=== PATIENT | female | born 1965 | race Caucasian/White ===

== ENCOUNTER 2016-08-17 04:25 | Emergency (ER) | payer BC ==
[~2016-08-17] VITALS: Ht 165.1 cm; Wt 83.0 kg
[~2016-08-17 04:25] MED LIST: IBUP-1450 PO; LEVO75TA5 PO
[2016-08-17 04:28] VITALS: TEMP 36.4; Ht 165.1 cm; Wt 83.0 kg
[2016-08-17] MEDS ORDERED: PRED50TA PO (04:44)
[2016-08-17] MEDS ORDERED: AMOX875T PO (04:44)
[2016-08-17] MEDS ORDERED: DEXAMETHASONE SOD INJ 10 MG/ML VIAL PO ONE (04:45)
[2016-08-17] MEDS ORDERED: AMOXICIL/CLAVU 875MG HOME PACK PO ONE (04:45)
--- NOTE | 2016-08-17 04:49 | EMERGENCY ROOM VISIT NOTE ---
History First contact with patient: 04:28 Chief Complaint: THROAT PAIN/INJURY Stated Complaint: THROAT SWELLING History of Present Illness The patient is a 51 year old female who presents to the Emergency Room with complaints of swelling of the back of her throat past few hours that woke her up out of sleep. Patient is currently receiving radiation for maintenance treatment who is currently breast cancer free. Her last dose was yesterday and has 18 more treatments. No recent chemotherapy She follows Dr. Roa. Patient denies new foods soaps or detergents. No new medications. Patient denies chest pain, facial swelling, tongue swelling, dysphagia, neck stiffness, headache, fever, chills, cough, sinus pain or congestion, abdominal pain. + history of similar symptoms in the past. She does not take any rosalinda inhibitors. Review of Systems See HPI for pertinent positives & negatives. A total of 10 systems reviewed and were otherwise negative. Past Medical/Surgical History Medical Problems: (1) Anemia (2) Dilation and curettage (3) POLYP OF CORPUS UTERI Family History Patient reports no known family medical history. Social History Smoking Status: Current Every Day Smoker Drug Use: none Marital Status: Occupation Status: employed Current/Historical Medications Scheduled Amoxicillin & Pot Clavulanate (Augmentin 875-125 mg), 1 TAB PO BID Levothyroxine Sodium (Levothyroxine Sodium), 1 TAB PO DAILY Prednisone (Prednisone), 50 MG PO DAILY Scheduled PRN Ibuprofen (Motrin), 600 MG PO Q6H PRN for Pain Allergies Coded Allergies: Acetaminophen (Verified Allergy, Unknown, shortness of breath,rash, ) Sulfamethoxazole w/Trimethoprim (Verified Adverse Reaction, Severe, Throat Swelling, Rash , 07/01/16) Physical Exam Vital Signs Date Time Temp Pulse Resp B/P Pulse Ox O2 Delivery O2 Flow Rate FiO2 08/17/16 04:37 95 Room Air 08/17/16 04:28 95 Room Air 08/17/16 04:28 36.4 75 20 146/93 95 Room Air Physical Exam VITALS: Vitals are noted on the nurse's note and reviewed by myself. Vital signs stable. GENERAL: Pleasant female speaking in full sentences, in no acute distress, nondiaphoretic, well-developed well-nourished. SKIN: The skin was without rashes, erythema, edema, or bruising. There is no tenting of the skin. Capillary reflex less than 2 seconds. HEAD: Normocephalic atraumatic. EARS: External auditory canals clear, tympanic membranes pearly sanchez without erythema or effusion bilaterally. EYES: Pupils equal round and reactive to light and accommodation. Conjunctivae without injection, sclerae without icterus. Extraocular movements intact. NOSE: Patent, turbinates without inflammation or discharge. No sinus tenderness. MOUTH: Mucous membranes moist. Pharynx without erythema or exudate. Uvula midline and is edematous concerning for uvulitis. Airway patent. Tongue does not deviate. NECK: Supple without nuchal rigidity. No lymphadenopathy. No thyromegaly. Cervical spine is nontender. No JVD. HEART: Regular rate and rhythm without murmurs gallops or rubs. LUNGS: Clear to auscultation bilaterally without wheezes, rales or rhonchi. No dullness to percussion. No retractions or accessory muscle use. ABDOMEN: Positive bowel sounds x 4. Normal tympanic percussion. Soft, nontender, without masses or organomegaly. Bowman sign negative. No guarding or rebound tenderness. MUSCULOSKELETAL: No muscle atrophy, erythema, or edema noted. NEURO: Patient was alert and oriented to person place and time. Normal sensation to light and sharp touch. No focal neurological deficits. Medical Decision & Procedures ED Course Prior records/ancillary studies reviewed. Triage Nursing notes reviewed. Additional history obtained from family The patient's history was concerning for swelling of the back of the throat Differential diagnosis: Etiologies such as uvulitis, abscess, airway compromise, allergic reaction, anaphylaxis, urticaria, Warner-Aric syndrome, toxic epidermal necrolysis, erythema multiforme, cellulitis, as well as others were entertained. Physical examination: As above. ER treatment provided: Continuous cardiac monitoring Benadryl 50 mg IV Zantac 50 mg IV Decadron 10 mg IV Patient was reassessed and felt better. Stable vital signs Diagnostic interpretation by me: deferred It appears the patient has uvulitis. The above treatment did well to reverse some of the symptoms. Patient had this problem before and symptoms feel similar. She is advised follow-up with an compensation consulting manager for further workup. After prolonged monitoring and frequent reassessments the patient did very well and symptoms improved. The patient was counseled on the spectrum of this disease process. I gave my usual and customary discussion regarding this issue. Patient was started on antibiotics. She was informed to inform her oncologist that she is currently on antibiotics before receiving radiation today. Patient was afebrile and nontoxic. No signs of meningitis. No signs of abscess. No signs of airway compromise. No Kal's angina. She was advised to return to the ER immediately for chest pain, difficulty breathing, difficulty swallowing, worsening signs or symptoms or as needed. By the evaluation outlined above emergent etiologies such as recurring abscess, anaphylaxis, anaphylatic shock, airway compromise, Warner-Aric syndrome, toxic epidermal necrolysis, erythema multiforme, infectious etiologies, as well as others were deemed relatively unlikely. The pt informed about the findings as listed above. All questions were answered and pleased with the treatment. Return instructions were outlined and the patient was discharged in stable condition. Outpatient prescription management: Augmentin prednisone Referral: The patient was referred back to primary care physician for follow-up in 2-3 days for a recheck of the current condition. case reviewed with my Attending Medical Decision As above Impression Primary Impression: Uvulitis Departure Information Dispostion Home / Self-Care Condition GOOD Prescriptions Amoxicillin & Pot Clavulanate (Augmentin 875-125 mg) 1 Tab Tab 1 TAB PO BID, #18 TAB Prov: Myrna Corbett .MARION 08/17/16 Prednisone (Prednisone) 50 Mg Tab 50 MG PO DAILY for 4 Days, #4 TAB Prov: Myrna Corbett PA-C 08/17/16 Forms WORK / SCHOOL INSTRUCTIONS, HOME CARE DOCUMENTATION FORM, IMPORTANT VISIT INFORMATION Patient Instructions My [facility], ED Uvulitis Additional Instructions DO NOT drive, drink alcohol, operate machinery, or perform dangerous activities today. You were given medications in the ER that can affect your ability to safely function or operate a vehicle. Inform your oncologist that you are currently on antibiotics before you go to your radiation treatment. Amoxicillin Clavulanate (Augmentin) 875mg: Take one pill twice daily for 10 days for your infection. All antibiotics can cause diarrhea. If this occurs and you feel worse or it does not resolve in 1-2 days follow up with your doctor or return to the Emergency Department as this could be signs of serious underlying problems. Any medication can cause an allergic reaction, stop the pills immediately and return to the ER for rash, hives, breathing difficulties, or swelling. Continue current medications. Return to the emergency department for worsening of your difficulty swallowing, facial swelling, fevers, neck stiffness, swelling of your face, lips, tongue, or throat, difficulty breathing, vomiting, or as needed. Follow-up with your primary care physician in 2 to 3 days for a recheck of your current condition. This has been a recurrent issue for you. You may want to see an compensation consulting manager to see if this might be allergy induced.
[2016-08-17 04:55] VITALS: BP 146/93; PULSE 75; O2SAT 95
== END 2016-08-17 04:55 | disposition home or self-care (01) ==
LOC: C.EDB 04:27 → C.EDA 04:55
DX: K12.2 Cellulitis and abscess of mouth (principal); Z79.899 Other long term (current) drug therapy; Z85.841 Personal history of malignant neoplasm of brain; F17.200 Nicotine dependence, unspecified, uncomplicated

== ENCOUNTER → 2016-10-12 | Outpatient (CLI) | payer BC ==
[2016-10-12 13:43] VITALS: BP 129/83; PULSE 84; TEMP 37; O2SAT 93
--- NOTE | 2016-10-12 16:38 | Radiation Oncology Follow-Up ---
Radiation Oncology Follow-Up Date of Visit Oct 12, 2016. Reason For Visit One-month follow-up and cancer survivorship care plan Radiation Completion Date 09/13/16 Diagnosis (1) Breast cancer Status: Acute Onset Date: 12/17/2015 Histology Subtype: ductal Stage: l (A) Permanent Comment: Self detected right breast mass Status post mammography 12/16/2015. Status post core needle biopsy 12/17/2015, 2 separate lesions invasive adenocarcinoma grade 3 Estrogen receptor negative, progesterone receptor weakly positive, HER-2/sybil positive Clinical stage TI N0 M0 Status post neoadjuvant chemotherapy with Taxotere, Perjeta and Herceptin for 6 cycles Status post lumpectomy and sentinel lymph node biopsy 06/16/2016 Stage ypT1c ypN0 M0 She will continue Herceptin for 1 year Status post completion of radiation therapy 09/13/2016. Received 6640 cGy Last Edited By: Joceline Parra on September 10, 2016 08:22 History of Present Illness Ms. Green is a 51-year-old female with a family history of breast cancer. The patient self detected a right breast mass and she underwent a bilateral digital diagnostic mammogram on 12/16/2015. A BB skin marker was placed over the palpable lesion which is located at the 7:00 middle one third of the right breast. This study identified a new lobulated 1.6 x 1.2 x 1.2 cm mass with associated linear calcifications. Further characteristics with ultrasound was performed. Real-time high resolution ultrasound revealed a hypoechoic solid mass with microlobulated an indistinct margins measuring 0.9 x 1.0 x 1.3 cm. Adjacent and superficial to the dominant mass 7 mm away was a second solid satellite mass measuring 0.8 x 0.4 x 0.55 cm. Additional sonographic evaluation was performed of the right axilla and no suspicious lymphadenopathy was identified. This was felt to be of moderate suspicion for malignancy with a biopsy recommended. On 01/17/2016 patient underwent an ultrasound guided core biopsy of the 7:00 right breast mass. This confirmed an invasive adenocarcinoma [place] grade 9 of 9 with no lymphovascular or perineural invasion identified. Estrogen receptors were negative, progesterone receptors were weakly positive at 1% and HER-2/sybil was equivocal. Ki-67 revealed 70% of cells positive. Tumor cells however were positive for HER-2/sybil amplification by FISH analysis in contrast to the equivocal results obtained by IHC. 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 Case: [id number]. Patient was seen by Dr. Ennis and subsequently by Dr. Jluis Zavala to discuss treatment options. A breast MRI was performed. The left breast there was no definitive suspicious mass or [id number] enhancement seen. There was a possible intramammary lymph node at the 10:00 middle depth with suggested six- month follow-up with MRI. In the right a 1.8 x 1.3 x 1.3 cm middle depth mass at the 6 to 7 o'clock position was appreciated corresponding to the biopsy- proven malignancy. An adjacent suspicious enhancing satellite nodule just inferior to the index lesion at the 6 to 7 o'clock position was also noted measuring 0.8 x 0.6 x 0.8 mm. The decision was ultimately made to proceed with neoadjuvant chemotherapy the plan was to proceed with 6 cycles of Taxotere, Perjetta and Herceptin. The patient agreed and started and completed the initial course of systemic chemotherapy. She underwent a restaging bilateral breast MRI on 05/27/2016. This showed near complete resolution of the 2 adjacent enhancing masses previously seen in the lower outer quadrant. The left breast remained negative. Patient therefore return to Dr. Ennis who proceeded to perform a right breast lumpectomy and sentinel node biopsy. Dr. Ennis discussed tissue transfer reconstruction for oncoplastic closure to improve her cosmetic result following surgery. The patient agreed and on 06/16/2016 underwent this surgical procedure. A total of 5 sentinel nodes were identified and all were negative with no evidence of metastatic carcinoma. The lumpectomy specimen revealed no residual carcinoma. A small focus of atypical ductal hyperplasia measuring 0.2 cm was appreciated. Accession #: [id number]. Patient therefore had a complete pathologic response. She is to continue the Herceptin for a total of one year. We were asked to see her in referral to discuss with her the role of adjuvant radiation. She completed her course of chemotherapy and then return to our office. She completed radiation therapy 09/03/2016. She received 6640 cGy. Interim History She's been doing well over the past 6 months. She has noted no changes to her breast. The skin irritation that occurred towards the end of treatment resolved without difficulty. She denies tenderness. She has noted no masses and no change of the axilla. She's had no swelling of her arm. She has mammography scheduled for November. She does continue to have some complaints of tingling of the hands and feet. She has toenail discoloration. Her hair is steadily coming in. She occasionally feels slightly dizzy. She has reviewed these symptoms with medical oncology. Allergies Coded Allergies: Acetaminophen (Verified Allergy, Unknown, shortness of breath,rash, ) Sulfamethoxazole w/Trimethoprim (Verified Adverse Reaction, Severe, Throat Swelling, Rash , 07/01/16) Home Medications Scheduled Levothyroxine Sodium (Levothyroxine Sodium), 1 TAB PO DAILY Scheduled PRN Ibuprofen (Motrin), 600 MG PO Q6H PRN for Pain Review of Systems Gastrointestinal: Symptoms: Diarrhea GI Comments: Very very loose stools daily which has been present since chemo ; Oral: Symptoms: No Problems Respiratory: Symptoms: WNL Urinary: Symptoms: WNL Skin: Symptoms: No Problems Breast: Right Upper Arm Measurement: 32.3 Right Mid Arm Measurement: 28.0 Right Wrist Measurement: 16.5 Left Upper Arm Measurement: 32.0 Left Mid Arm Measurement: 27.5 Left Wrist Measurement: 16.8 Arm Dominence: Right Additional Notes: She completed a distress management report and answered "no" to all questions. Physical Exam Vital Signs Date Time Temp Pulse Resp B/P (MAP) Pulse Ox O2 Delivery O2 Flow Rate FiO2 10/12/16 13:43 37.0 84 16 129/83 93 General Appearance: no apparent distress Eyes: normal inspection, EOMI ENT: normal ENT inspection, hearing grossly normal Neck: no adenopathy, thyroid normal Respiratory/Chest: lungs clear, no respiratory distress, no accessory muscle use Breast: Breast examination reveals well-healed incisions of the right breast. There are minimal masses or tenderness and no axillary adenopathy. There is mild hyperpigmentation. There is no erythema or edema. There is no telangiectasia. Using the [employer] score cosmesis she has a good outcome. Left breast showed no masses or tenderness no axillary adenopathy. Cardiovascular: regular rate, rhythm, no gallop, no murmur Abdomen: non tender, soft Extremities: no pedal edema Neurologic/Psychiatric: no motor/sensory deficits, alert, normal mood/affect Skin: warm/dry Lymphatic: no adenopathy Laboratory Studies Test 07/14/16 17:30 08/25/16 18:28 White Blood Count 6.17 K/uL (4.8-10.8) 8.31 K/uL (4.8-10.8) Red Blood Count 3.90 M/uL (4.2-5.4) 4.33 M/uL (4.2-5.4) Hemoglobin 13.1 g/dL (12.0-16.0) 14.1 g/dL (12.0-16.0) Hematocrit 38.3 % (37-47) 41.2 % (37-47) Mean Corpuscular Volume 98.2 fL (80-100) 95.2 fL (80-100) Mean Corpuscular Hemoglobin 33.6 pg (25-34) 32.6 pg (25-34) Mean Corpuscular Hemoglobin Concent 34.2 g/dl (32-36) 34.2 g/dl (32-36) Platelet Count 164 K/uL (130-400) 169 K/uL (130-400) Mean Platelet Volume 9.3 fL (7.4-10.4) 9.3 fL (7.4-10.4) Neutrophils (%) (Auto) 55.0 % 65.1 % Lymphocytes (%) (Auto) 33.5 % 23.6 % Monocytes (%) (Auto) 7.1 % 7.9 % Eosinophils (%) (Auto) 3.6 % 2.6 % Basophils (%) (Auto) 0.3 % 0.4 % Neutrophils # (Auto) 3.39 K/uL (1.4-6.5) 5.41 K/uL (1.4-6.5) Lymphocytes # (Auto) 2.07 K/uL (1.2-3.4) 1.96 K/uL (1.2-3.4) Monocytes # (Auto) 0.44 K/uL (0.11-0.59) 0.66 K/uL (0.11-0.59) Eosinophils # (Auto) 0.22 K/uL (0-0.5) 0.22 K/uL (0-0.5) Basophils # (Auto) 0.02 K/uL (0-0.2) 0.03 K/uL (0-0.2) RDW Standard Deviation 43.9 fL (36.4-46.3) 42.4 fL (36.4-46.3) RDW Coefficient of Variation 12.3 % (11.5-14.5) 12.2 % (11.5-14.5) Immature Granulocyte % (Auto) 0.5 % 0.4 % Immature Granulocyte # (Auto) 0.03 K/uL (0.00-0.02) 0.03 K/uL (0.00-0.02) Assessment & Plan Plan: She is scheduled for follow-up mammography in November. We discussed that these will be digital diagnostic mammograms. These have been scheduled through the breast surgeons office. She'll continue follow-up with Dr. Zavala and her primary care physician. She continues on the Herceptin for 1 year. Today we completed a cancer survivorship care plan. A copy of the document was given to the patient. We asked her to return to our office in 6 months. She may call if she has any questions or concerns in the interim. Total Time In Follow-Up I spent 20 minutes speaking to the patient performing examination. I spent 20 minutes reviewing information, preparing the survivorship document, and completing this note. Copy To Brandy Ennis MD; Alexandru Grande D.O.; Jluis Zavala M.D. Problem Qualifiers (1) Breast cancer: Breast location: lower outer quadrant of breast Estrogen receptor status: negative Patient sex: female Laterality: right Qualified Codes: C50.511 - Malignant neoplasm of lower-outer quadrant of right female breast; Z17.1 - Estrogen receptor negative status [ER-]
== END | disposition home or self-care (01) ==
LOC: C.ONC 13:39
PROVIDERS: ATTEND Physician Assistant Medical
DX: Z08 Encounter for follow-up examination after completed treatment for malignant neoplasm (principal); Z92.3 Personal history of irradiation; Z85.3 Personal history of malignant neoplasm of breast

== ENCOUNTER → 2016-12-13 | Outpatient (CLI) | payer BC ==
--- NOTE | 2016-12-13 14:33 | MAMMOGRAPHY REPORT ---
BILATERAL DIGITAL DIAGNOSTIC MAMMOGRAM TOMOSYNTHESIS WITH CAD: 12/13/2016 CLINICAL HISTORY: 51-year-old woman with a personal history of right breast cancer presents for bilat eral screening mammography of both breasts and also close evaluation of the right breast as she is ap proximately 6 months status post treatment with lumpectomy and radiation therapy. TECHNIQUE: Bilateral breast tomosynthesis in addition to standard 2D mammography was performed. Spot magnification right CC and ML views were also obtained. Current study was also evaluated with a Z Plane Aided Detection (CAD) system. COMPARISON: Comparison is made to exams dated: 03/24/2016 ultrasound, 03/24/2016 mammogram, 6 mammogram, 12/16/2015 mammogram, 08/09/2013 mammogram, and 08/06/2013 mammogram - [facility]. BREAST COMPOSITION: There are scattered areas of fibroglandular density in both breasts. FINDINGS: A linear scar marker overlies the inferior right breast, denoting the lumpectomy site. Th ere is expected underlying architectural distortion. The previously observed wing- and a ribbon-shap ed biopsy markers have been excised. No evidence of a new suspicious mass, developing asymmetry, foc al area of architectural distortion or suspicious calcifications bilaterally. IMPRESSION: ACR-BI-RADS CATEGORY 3: PROBABLY BENIGN 1. Expected posttreatment changes in the right breast, without mammographic evidence of malignancy. 2. Stable mammographic appearance of the left breast, without evidence of malignancy. 3. Recommend close follow-up mammograms and possible ultrasound of the right breast in 6 months, to ensure longer stability after treatment. These results and recommendations were discussed with the patient at the time of the exam. Approximately 10% of breast cancers are not detected with mammography. A negative mammographic report should not delay biopsy if a clinically suggestive mass is present. Char Stanley M.D. ay/:12/13/2016 12:38:00 Material Analyst: Germaine ALONZO)(Lucita), [facility] letter sent: Follow Up Recommended 3 BI-RADS Code: ACR-BI-RADS Category 3: Probably Benign
== END | disposition home or self-care (01) ==
LOC: C.MAMM 10:14
PROVIDERS: ATTEND Surgery
DX: Z85.3 Personal history of malignant neoplasm of breast (principal); Z08 Encounter for follow-up examination after completed treatment for malignant neoplasm

== ENCOUNTER → 2017-01-27 | Outpatient (CLI) | payer BC ==
--- NOTE | 2017-01-27 19:09 | DIAGNOSTIC IMAGING REPORT ---
BRAIN WITHOUT CONTRAST HISTORY: Mental status change VERTIGO TECHNIQUE: Multiplanar multisequence MRI of the brain was performed without the use of contrast. COMPARISON STUDY: None. FINDINGS: There are no areas of restricted diffusion to suggest acute infarction. The midline structures are intact. The paranasal sinuses are clear. The mastoid air cells are clear. The ventricles and sulci are within normal limits for age. There is no mass, hematoma, midline shift. The major vascular flow-voids at the skull base are well maintained. Several small foci of increased signal within the periventricular and deep white matter regions consistent with mild chronic small vessel change. IMPRESSION: Mild chronic small vessel change. A demyelinating disorder is felt to be less likely although cannot be completely excluded. Otherwise normal study The above report was generated using voice recognition software. It may contain grammatical, syntax or spelling errors. Electronically signed by: Hernando Lucas M.D. 01/27/2017 7:08 PM Dictated Date/Time: 01/27/2017 7:05 PM
== END | disposition home or self-care (01) ==
LOC: C.MRI 17:51
PROVIDERS: ATTEND Internal Medicine
DX: R42 Dizziness and giddiness (principal); C50.411 Malignant neoplasm of upper-outer quadrant of right female breast

== ENCOUNTER → 2017-04-13 | Outpatient (CLI) | payer BC ==
[~2017-04-13] MED LIST changes: +PRLSR20 PO
[2017-04-13 14:21] VITALS: BP 146/92; PULSE 85; TEMP 36.9; O2SAT 96
--- NOTE | 2017-04-13 16:41 | Radiation Oncology Follow-Up ---
Radiation Oncology Follow-Up Date of Visit Apr 13, 2017. Reason For Visit 6 month follow-up Radiation Completion Date 09/13/16 Diagnosis (1) Breast cancer Status: Resolved Onset Date: 12/17/2015 Stage: l (A) Permanent Comment: Self detected right breast mass Status post mammography 12/16/2015. Status post core needle biopsy 12/17/2015, 2 separate lesions invasive adenocarcinoma grade 3 Estrogen receptor negative, progesterone receptor weakly positive, HER-2/sybil positive Clinical stage TI N0 M0 Status post neoadjuvant chemotherapy with Taxotere, Perjeta and Herceptin for 6 cycles Status post lumpectomy and sentinel lymph node biopsy 06/16/2016 Stage ypT1c ypN0 M0 She will continue Herceptin for 1 year Status post completion of radiation therapy 09/13/2016. Received 6640 cGy Last Edited By: Joceline Parra on September 10, 2016 08:22 History of Present Illness Ms. Welch is a 51-year-old female with a family history of breast cancer. The patient self detected a right breast mass and she underwent a bilateral digital diagnostic mammogram on 12/16/2015. A BB skin marker was placed over the palpable lesion which is located at the 7:00 middle one third of the right breast. This study identified a new lobulated 1.6 x 1.2 x 1.2 cm mass with associated linear calcifications. Further characteristics with ultrasound was performed. Real-time high resolution ultrasound revealed a hypoechoic solid mass with microlobulated an indistinct margins measuring 0.9 x 1.0 x 1.3 cm. Adjacent and superficial to the dominant mass 7 mm away was a second solid satellite mass measuring 0.8 x 0.4 x 0.55 cm. Additional sonographic evaluation was performed of the right axilla and no suspicious lymphadenopathy was identified. This was felt to be of moderate suspicion for malignancy with a biopsy recommended. On 01/17/2016 patient underwent an ultrasound guided core biopsy of the 7:00 right breast mass. This confirmed an invasive adenocarcinoma [place] grade 9 of 9 with no lymphovascular or perineural invasion identified. Estrogen receptors were negative, progesterone receptors were weakly positive at 1% and HER-2/sybil was equivocal. Ki-67 revealed 70% of cells positive. Tumor cells however were positive for HER-2/sybil amplification by FISH analysis in contrast to the equivocal results obtained by IHC. 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 Case: [id number]. Patient was seen by Dr. Ennis and subsequently by Dr. Jluis Zavala to discuss treatment options. A breast MRI was performed. The left breast there was no definitive suspicious mass or wyh-ssaw-wuyl enhancement seen. There was a possible intramammary lymph node at the 10:00 middle depth with suggested six- month follow-up with MRI. In the right a 1.8 x 1.3 x 1.3 cm middle depth mass at the 6 to 7 o'clock position was appreciated corresponding to the biopsy- proven malignancy. An adjacent suspicious enhancing satellite nodule just inferior to the index lesion at the 6 to 7 o'clock position was also noted measuring 0.8 x 0.6 x 0.8 mm. The decision was ultimately made to proceed with neoadjuvant chemotherapy the plan was to proceed with 6 cycles of Taxotere, Perjetta and Herceptin. The patient agreed and started and completed the initial course of systemic chemotherapy. She underwent a restaging bilateral breast MRI on 05/27/2016. This showed near complete resolution of the 2 adjacent enhancing masses previously seen in the lower outer quadrant. The left breast remained negative. Patient therefore return to Dr. Ennis who proceeded to perform a right breast lumpectomy and sentinel node biopsy. Dr. Ennis discussed tissue transfer reconstruction for oncoplastic closure to improve her cosmetic result following surgery. The patient agreed and on 06/16/2016 underwent this surgical procedure. A total of 5 sentinel nodes were identified and all were negative with no evidence of metastatic carcinoma. The lumpectomy specimen revealed no residual carcinoma. A small focus of atypical ductal hyperplasia measuring 0.2 cm was appreciated. Accession #: [id number]. Patient therefore had a complete pathologic response. She is to continue the Herceptin for a total of one year. We were asked to see her in referral to discuss with her the role of adjuvant radiation. She completed her course of chemotherapy and then return to our office. She completed radiation therapy 09/03/2016. She received 6640 cGy. Interim History She has been doing well over the past 6 months. She's noted no changes to her breast. She has noticed no masses or tenderness no change of the axilla. She' s had no swelling of her arm. She is up-to-date on mammography. 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 These have steadily resolved. She also had vertigo. She saw her primary care physician Dr. Reddy who had ordered a MRI of the brain. There is no evidence of metastatic disease. Allergies Coded Allergies: Sulfamethoxazole w/Trimethoprim (Verified Adverse Reaction, Severe, Throat Swelling, Rash , 07/01/16) Home Medications Scheduled Levothyroxine Sodium (Levothyroxine Sodium), 1 TAB PO DAILY Omeprazole (Prilosec), 20 MG PO DAILY Scheduled PRN Ibuprofen (Motrin), 600 MG PO Q6H PRN for Pain Review of Systems Gastrointestinal: Symptoms: WNL GI Comments: N/V Better on Daily Prilosec (due to stress) Oral: Symptoms: No Problems Respiratory: Symptoms: WNL Urinary: Symptoms: WNL Skin: Symptoms: No Problems Breast: Right Upper Arm Measurement: 30.9 Right Mid Arm Measurement: 26.1 Right Wrist Measurement: 16.8 Left Upper Arm Measurement: 31.5 Left Mid Arm Measurement: 26.8 Left Wrist Measurement: 16.8 Arm Dominence: Right Physical Exam Vital Signs Date Time Temp Pulse Resp B/P (MAP) Pulse Ox O2 Delivery O2 Flow Rate FiO2 04/13/17 14:21 36.9 85 16 146/92 96 Fatigue: None General Appearance: no apparent distress Eyes: normal inspection, EOMI ENT: normal ENT inspection, hearing grossly normal Neck: no adenopathy, thyroid normal Respiratory/Chest: lungs clear, no respiratory distress, no accessory muscle use Breast: Breast examination reveals well-healed incisions of the right breast. There are no masses or tenderness no axillary adenopathy. There are no skin retractions or nipple changes. Using the [place] score cosmesis she has an excellent outcome. Left breast showed no masses or tenderness and no axillary adenopathy. Cardiovascular: regular rate, rhythm, no gallop, no murmur Abdomen: non tender, soft Extremities: no pedal edema Neurologic/Psychiatric: no motor/sensory deficits, alert, normal mood/affect Skin: warm/dry Lymphatic: no adenopathy Pain Management Patient Reports Pain: Yes Pain Location: Back Initial Pain Intensity: 1 Pain Management Plan Her pain is minimal and does not require any pain management. Laboratory Laboratory Results: not applicable Pathology Pathology Results: not applicable Imaging Imaging Studies: were reviewed, and pertinent findings noted below Imaging Comments Patient: CARLOS WELCH [facility] Rec: [id number] Address1: [address] Address2: Acct ID: [id number] Date: 1965 Sex: F Ref Phy: Alexandru Grande D.O. Att Phy: Brandy Ennis MD Nelida Phy: Alexandru Grande D.O. Inter Phy: Char Stanley MD [facility] Zip: [place] [address] SC: C.MAMM Report #: [id number] Visitor Services Associate: JUMANA Diagnosis: S/P SURGERY RIGHT BREAST CA/IMAGES HERE Service Date: 12/13/16 MNE: [id number] Ordering Dr: Brandy Ennis MD CC: Brandy Ennis MD CONF: DICTATED BY: Char Stanley MD MAMMOGRAPHY REPORT BILATERAL DIGITAL DIAGNOSTIC MAMMOGRAM TOMOSYNTHESIS WITH CAD: 12/13/2016 CLINICAL HISTORY: 51-year-old woman with a personal history of right breast cancer presents for bilateral screening mammography of both breasts and also close evaluation of the right breast as she is approximately 6 months status post treatment with lumpectomy and radiation therapy. TECHNIQUE: Bilateral breast tomosynthesis in addition to standard 2D mammography was performed. Spot magnification right CC and ML views were also obtained. Current study was also evaluated with a Computer Aided Detection (CAD ) system. COMPARISON: Comparison is made to exams dated: 03/24/2016 ultrasound, 2015 mammogram, 12/17/2015 mammogram, 12/16/2015 mammogram, 08/09/2013 mammogram, and 08/06/2013 mammogram - [facility]. BREAST COMPOSITION: There are scattered areas of fibroglandular density in both breasts. FINDINGS: A linear scar marker overlies the inferior right breast, denoting the lumpectomy site. There is expected underlying architectural distortion. The previously observed wing- and a ribbon-shaped biopsy markers have been excised. No evidence of a new suspicious mass, developing asymmetry, focal area of architectural distortion or suspicious calcifications bilaterally. IMPRESSION: ACR-BI-RADS CATEGORY 3: PROBABLY BENIGN 1. Expected posttreatment changes in the right breast, without mammographic evidence of malignancy. 2. Stable mammographic appearance of the left breast, without evidence of malignancy. 3. Recommend close follow-up mammograms and possible ultrasound of the right breast in 6 months, to ensure longer stability after treatment. These results and recommendations were discussed with the patient at the time of the exam. Approximately 10% of breast cancers are not detected with mammography. A negative mammographic report should not delay biopsy if a clinically suggestive mass is present. Char Stanley M.D. ay/:12/13/2016 12:38:00 Meat Manager: Germaine ALONZO)(Lucita), [facility] letter sent: Follow Up Recommended 3 BI-RADS Code: ACR-BI-RADS Category 3: Probably Benign Dictated by: Char Stanley MD Signed by: Char Stanley MD Assessment & Plan Plan: Continue with scheduled mammography. She has a mammogram scheduled for June. Continue follow-up with her primary care provider. She is now followed by Dr. Brooks in medical oncology. She does have a follow-up appointment with him. We asked her to return to our office in 1 year. She may call if she has any questions or concerns in the interim. Total Time In Follow-Up I spent 20 minutes speaking to the patient and performing examination. I spent 15 minutes reviewing information in completing this note. Copy To Froilan Brooks M.D.; Alexandru Grande D.O. Problem Qualifiers (1) Breast cancer: Breast location: upper outer quadrant of breast Estrogen receptor status: negative Patient sex: female Laterality: right Qualified Codes: C50.411 - Malignant neoplasm of upper-outer quadrant of right female breast; Z17.1 - Estrogen receptor negative status [ER-]
== END | disposition home or self-care (01) ==
LOC: C.ONC 14:14
PROVIDERS: ATTEND Physician Assistant Medical
DX: Z08 Encounter for follow-up examination after completed treatment for malignant neoplasm (principal); Z92.3 Personal history of irradiation; Z85.3 Personal history of malignant neoplasm of breast

== ENCOUNTER → 2017-05-27 | Outpatient (CLI) | payer OTHER ==
--- NOTE | 2017-05-27 13:26 | MAMMOGRAPHY REPORT ---
UNILATERAL RIGHT DIGITAL DIAGNOSTIC MAMMOGRAM TOMOSYNTHESIS WITH CAD AND TARGETED RIGHT ULTRASOUND: CLINICAL HISTORY: History of right breast cancer status post treatment. The patient reports 3 weeks of right breast tenderness. She denies any palpable lumps, skin erythema, nipple discharge, or other complaints. TECHNIQUE: Breast tomosynthesis in addition to standard 2D mammography was performed. Current study was also evaluated with a Computer Aided Detection (CAD) system. Right CC and MLO 2-D and tomosynthe sis images and spot magnification right cc and ML views were obtained. COMPARISON: Comparison is made to exams dated: 12/13/2016 mammogram, 03/24/2016 ultrasound, 6 mammogram, 01/12/2016 localization, 12/17/2015 mammogram, and 12/16/2015 mammogram - [facility]. BREAST COMPOSITION: There are scattered areas of fibroglandular density in the right breast. FINDINGS: There has been no significant interval change in the right breast compared to prior exams. There are stable post surgical changes in the right 6:00 breast from prior lumpectomy, including st able density and architectural distortion at the lumpectomy bed. Mild diffuse right breast skin thic kening is not significantly changed and is likely related to prior radiation therapy. The remainder of the right breast is stable compared to prior exams, without suspicious masses, calcifications, or areas of architectural distortion noted. Targeted ultrasound was performed of the areas of pain pointed out by the patient, in the right breas t at 2:00 approximately 5 cm from the nipple, right lower inner quadrant involving the 6:00 region, a nd right lower outer quadrant. No suspicious masses or other suspicious sonographic abnormalities ar e evident. There are expected post surgical changes in the right 6:00 breast at the surgical bed. IMPRESSION: ACR-BI-RADS CATEGORY 3: PROBABLY BENIGN, TARGETED ULTRASOUND ACR-BI-RADS CATEGORY 3: PRO BABLY BENIGN No suspicious mammographic or sonographic abnormality to explain right breast tenderness. Stable post treatment changes in the right breast, without mammographic evidence of malignancy in the right breas t. Recommend clinical follow-up for right breast tenderness. Also recommend bilateral diagnostic ma mmograms in 6 months, to reevaluate right breast post surgical changes and for routine mammography of the left breast. The patient has been verbally notified of the results. She reports she has a follow-up already sched ul for November. Approximately 10% of breast cancers are not detected with mammography. A negative mammographic report should not delay biopsy if a clinically suggestive mass is present. Radha Herrera M.D. ah/:05/27/2017 10:54:01 Aeronautical Products Sales Engineer: Savanna ALONZO)(Lucita), [facility] letter sent: Personal History 3 BI-RADS Code: ACR-BI-RADS Category 3: Probably Benign Ultrasound BI-RADS: ACR-BI-RADS Category 3: Pr obably Benign
== END | disposition home or self-care (01) ==
LOC: C.MAMM 08:44
PROVIDERS: ATTEND Internal Medicine
DX: R92.8 Other abnormal and inconclusive findings on diagnostic imaging of breast (principal)

== ENCOUNTER 2017-07-15 13:56 | Emergency (ER) | payer OTHER ==
[~2017-07-15] VITALS: Ht 165.1 cm; Wt 81.9 kg
[~2017-07-15 13:56] MED LIST changes: -PRLSR20 PO
[2017-07-15 13:59] VITALS: TEMP 36.7; Ht 165.1 cm; Wt 81.9 kg
[2017-07-15] MEDS ORDERED: SODIUM CHLORIDE 0.9% 1000ML 2,000 ML IV STA (14:15)
--- NOTE | 2017-07-15 14:20 | EMERGENCY ROOM VISIT NOTE ---
History Report prepared by Andrae: Dylan Meza Under the Supervision of: Dr. Valentino Ferrer M.D. First contact with patient: 14:10 Chief Complaint: POISONING Stated Complaint: RUBBER TUBING BACKER PUT IN DRINK, DRANK IT History of Present Illness The patient is a 52 year old female who presents to the Emergency Room with complaints of episodic alleged general poisoning since 0715 this morning. She states that she was not feeling 100% normal today, so she brought a mekoryuk flavored 16.9 ounce Gatorade to work with her and placed it in her 32 ounce thermos with ice cubes she obtained from work. 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 She states that she began drinking her Gatorade at 0715 and noticed that it tasted funny, and reports a burning sensation in her throat and stomach. She reports continuing to drink her Gatorade in hopes the burning sensation would go away. She states that she tasted Clorox when she finished the last of her drink at 1300 today. She notes that every time she burps, she tastes Clorox. She reports nausea. She notes the burning sensation is like indigestion, but worse. She is concerned that he has been poisoned by someone at work, though she is not sure who would contaminate her beverage. She states that the only Clorox products they use at work are a liquid brand Comet, which she is unsure if it is industrial strength. She states this is the third time something like this has occurred in the last two years. She states that she has found hand lotion in her drink in the past and just two months ago she found a bar of soap in her coffee. She states that this has been reported to the police. 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 She is expected to have a grievance hearing on Tuesday, July 18, 2017. She has a history of breast cancer, though she is in remission. She also has a history of hypothyroidism. She denies any history of anxiety or depression. She denies any abdominal pain, fevers, chills, cough, or congestion. Source of History: patient Onset: 0715 this morning Position: other (general) Quality: other (alleged poisoning) Timing: other (episodic) Associated Symptoms: + nausea, No fevers, No chills, No cough, No abdominal pain Note: She notes a burning sensation in her throat and stomach. She denies any congestion. Review of Systems See HPI for pertinent positives and negatives. A total of ten systems were reviewed and were otherwise negative. Past Medical & Surgical Medical Problems: (1) Anemia (2) Breast cancer (3) Dilation and curettage (4) POLYP OF CORPUS UTERI Family History Patient reports no known family medical history. Social History Smoking Status: Current Every Day Smoker Drug Use: none Marital Status: Occupation Status: employed Current/Historical Medications Scheduled Levothyroxine Sodium (Levothyroxine Sodium), 75 MCG PO DAILY Omeprazole (Prilosec), 20 MG PO DAILY Allergies Coded Allergies: Sulfamethoxazole w/Trimethoprim (Verified Allergy, Severe, Throat Swelling , Rash , 07/15/17) Physical Exam Vital Signs Date Time Temp Pulse Resp B/P (MAP) Pulse Ox O2 Delivery O2 Flow Rate FiO2 07/15/17 18:59 68 16 96 Room Air 07/15/17 17:30 62 16 143/83 94 Room Air 07/15/17 16:21 79 14 148/99 95 Room Air 07/15/17 16:17 73 07/15/17 14:47 79 18 132/89 94 Room Air 07/15/17 13:59 36.7 90 18 150/99 97 Room Air Physical Exam GENERAL: Awake, alert, anxious-appearing, in no distress HENT: Normocephalic, atraumatic. Oropharynx dry mucus membranes, no erythema. EYES: Normal conjunctiva. Sclera non-icteric. NECK: Supple. No nuchal rigidity. FROM. No JVD. No crepitus RESPIRATORY: Clear to auscultation. CARDIAC: Regular rate, normal rhythm. Extremities warm and well perfused. Pulses equal. ABDOMEN: Soft, non-distended. No tenderness to palpation. No rebound or guarding. No masses. RECTAL: Deferred. MUSCULOSKELETAL: Chest examination reveals no tenderness, no crepitus. The back is symmetrical on inspection without obvious abnormality. There is no CVA tenderness to palpation. No joint edema. LOWER EXTREMITIES: Calves are equal size bilaterally and non-tender. No edema. No discoloration. NEURO: Normal sensorium. No sensory or motor deficits noted. SKIN: No rash or jaundice noted. Medical Decision & Procedures ER Provider Diagnostic Interpretation: Radiology results as stated below per my review and radiologist interpretation: CHEST ONE VIEW PORTABLE CLINICAL HISTORY: , Pain. COMPARISON STUDY: Chest radiograph August 13, 2015. FINDINGS: Lung volumes are normal. No pneumothorax or pleural effusion is noted. There is no consolidation or evidence for pulmonary edema. Borderline cardiomegaly is noted. Mediastinal contours are unremarkable. IMPRESSION: No acute cardiopulmonary findings. Electronically signed by: Teja Nieves M.D. 07/15/2017 3:32 PM Dictated Date/Time: 07/15/2017 3:32 PM SOFT TISSUE NECK HISTORY: 52 years-old Female throat burning, ?drank industrial clorox acute throat burning status post toxic ingestion COMPARISON: Chest radiographs 08/13/2015 TECHNIQUE: 2 views of the soft tissues of the neck FINDINGS: No prevertebral soft tissue swelling or opaque foreign body. Epiglottis and aryepiglottic folds are within normal limits. The imaged cervical spine appears intact and unremarkable. The imaged lung apices appear clear. IMPRESSION: Unremarkable soft tissue neck radiographs. The above report was generated using voice recognition software. It may contain grammatical, syntax or spelling errors. Electronically signed by: Juventino Marroquin M.D. 07/15/2017 3:34 PM Dictated Date/Time: 07/15/2017 3:33 PM Laboratory Results 07/15/17 14:40 Red Blood Count 4.36, Mean Corpuscular Volume 91.5, Mean Corpuscular Hemoglobin 31.7, Mean Corpuscular Hemoglobin Concent 34.6, Mean Platelet Volume 9.1, Neutrophils (%) (Auto) 66.3, Lymphocytes (%) (Auto) 25.0, Monocytes (%) (Auto) 6.0, Eosinophils (%) (Auto) 2.2, Basophils (%) (Auto) 0.3, Neutrophils # (Auto) 3.89, Lymphocytes # (Auto) 1.47, Monocytes # (Auto) 0.35, Eosinophils # (Auto) 0.13, Basophils # (Auto) 0.02 07/15/17 14:40 Test 07/15/17 14:40 White Blood Count 5.87 K/uL (4.8-10.8) Red Blood Count 4.36 M/uL (4.2-5.4) Hemoglobin 13.8 g/dL (12.0-16.0) Hematocrit 39.9 % (37-47) Mean Corpuscular Volume 91.5 fL (80-100) Mean Corpuscular Hemoglobin 31.7 pg (25-34) Mean Corpuscular Hemoglobin Concent 34.6 g/dl (32-36) Platelet Count 173 K/uL (130-400) Mean Platelet Volume 9.1 fL (7.4-10.4) Neutrophils (%) (Auto) 66.3 % Lymphocytes (%) (Auto) 25.0 % Monocytes (%) (Auto) 6.0 % Eosinophils (%) (Auto) 2.2 % Basophils (%) (Auto) 0.3 % Neutrophils # (Auto) 3.89 K/uL (1.4-6.5) Lymphocytes # (Auto) 1.47 K/uL (1.2-3.4) Monocytes # (Auto) 0.35 K/uL (0.11-0.59) Eosinophils # (Auto) 0.13 K/uL (0-0.5) Basophils # (Auto) 0.02 K/uL (0-0.2) RDW Standard Deviation 44.6 fL (36.4-46.3) RDW Coefficient of Variation 13.3 % (11.5-14.5) Immature Granulocyte % (Auto) 0.2 % Immature Granulocyte # (Auto) 0.01 K/uL (0.00-0.02) Anion Gap 8.0 mmol/L (3-11) Est Creatinine Clear Calc Drug Dose 62.4 ml/min Estimated GFR () 66.6 Estimated GFR (Non- 57.5 BUN/Creatinine Ratio 12.3 (10-20) Calcium Level 9.4 mg/dl (8.5-10.1) Total Bilirubin 0.3 mg/dl (0.2-1) Direct Bilirubin < 0.1 mg/dl (0-0.2) Aspartate Amino Transf (AST/SGOT) 14 U/L (15-37) Alanine Aminotransferase (ALT/SGPT) 22 U/L (12-78) Alkaline Phosphatase 37 U/L (45-117) Total Protein 7.3 gm/dl (6.4-8.2) Albumin 4.0 gm/dl (3.4-5.0) Lipase 199 U/L (73-393) Laboratory results reviewed by me Medications Administered Medications (Trade) Dose Ordered Sig/Angie Route Start Time Stop Time Status Last Admin Dose Admin Sodium Chloride 2,000 ml @ 999 mls/hr Q2H1M STAT IV 07/15/17 14:15 07/15/17 16:15 DC 07/15/17 15:04 999 MLS/HR Sodium Chloride 1,000 ml @ 125 mls/hr Q8H STAT IV 07/15/17 16:55 07/15/17 19:35 DC 07/15/17 17:28 125 MLS/HR Pantoprazole Sodium 40 mg/ Syringe 10 ml @ 5 mls/min NOW ONCE IV 07/15/17 17:00 07/15/17 17:01 DC 07/15/17 17:28 5 MLS/MIN ECG Per My Interpretation Indication: toxicologic Rate (beats per minute): 77 Rhythm: normal sinus Findings: no acute ischemic change, other (Normal axis) ED Course 1410: The patient was evaluated in room B2. A complete history and physical exam was performed. 1432: I spoke with Faiza Sewell NP gastroenterology. We discussed the patient's case. She will consult with Dr. Cheyenne Ennis, gastroenterology. 1447: I spoke with Faiza Sewell NP gastroenterology. She states that Dr. Cheyenne Ennis, recommends the patient be transferred to a tertiary care center in [facility]. They want to make sure the patient has access to a thoracic surgeon in case they determine the patient needs further care. 1515: I reassessed the patient at this time. I informed the patient about the transfer. She states that she is feeling better. 1633: I spoke with Dr. Rascon, winery worker. We discussed the patients case. 1650: I reassessed the patient at this time. I discussed the results and treatment plan with the patient. I answered all pertaining questions that she had. She expressed understanding and verbalized agreement. The patient will be transferred for further care. Medical Decision I reviewed the patient's past medical history, medications, and the nursing notes as described above. Differential diagnoses include: toxic ingestion, esophagitis, reflux, gastritis , and PNA. The patient is a 52-year-old woman who presents emergency department with a complaint of painful swallowing and burning in the setting of question of ingestion of an adulterated beverage with industrial bleach per hpi. Of note, the patient reports that she has an having difficulties at work where she believes someone has been adult rating her drinks, example in the past she cites a bar of soap as well as hand lotion being put in her coffee. Today the patient reports that she took a bottle of Gatorade from home and brought her to work where she filled her insulated mug with ice. Began drinking around 7:30 AM and noticed a slight burn however she interpreted this as perhaps needing to continue to drink the beverage throughout the morning until 1:30 PM when she finally noticed the taste of bleach in her mug and and complained of severe burning in the back of her throat down to her stomach. Per the patient police was involved at her work investigating this. 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 Typically she says it is comic with bleach. ; Showed her a picture of a bottle online she identified it and it is labeled as professional strength. On exam the patient has no oral pharyngeal injection or edema. There is no crepitus in the neck or chest to suggest perforation. Chest x-ray and plain film of the neck are also unremarkable. Labs additionally unremarkable. This was discussed with GI GEOGRAPHICAL HISTORIAN discussed the case with her attending Dr. Ennis who recommended transfer to tertiary care center where an upper endoscopy could be performed with appropriate surgical backup if needed so as to rule out mucosal injury. Case was sent subsequently discussed with Eulalio Ortiz winery worker who agrees with plan for transfer for endoscopy. However, there are no inpatient beds available and so decision was made for ED to ED transfer. Transfer was accepted by emergency department attending Dr. Avila. Patient will be transferred via ALS ground. Patient was updated regarding the plan she is agreeable. Subsequently she does report improvement in her symptoms at this time. Medication Reconcilliation Current Medication List: was personally reviewed by me Blood Pressure Screening Patient's blood pressure: Elevated blood pressure Blood pressure disposition: Elevated BP felt to be situational Consults Time Called: 1420 Consulting Physician: Faiza Sewell NP gastroenterology Returned Call: 1432 I spoke with Faiza Sewell NP gastroenterology. We discussed the patient 's case. She will consult with Dr. Cheyenne Ennis, gastroenterology. 1447: I spoke with Faiza Sewell NP gastroenterology. She states that Dr. Cheyenne Ennis, recommends the patient be transferred to a tertiary care center in [facility]. They want to make sure the patient has access to a thoracic surgeon in case they determine the patient needs further care. Additional Consults: Time Called: 1601 Consulted Physician: Dr. Rascon, winery worker Returned Call: 1633 Additional Comments: I spoke with Dr. Rascon, winery worker. We discussed the patients case. Impression Primary Impression: Dysphagia Additional Impression: Ingestion of caustic substance Scribe Attestation The scribe's documentation has been prepared under my direction and personally reviewed by me in its entirety. I confirm that the note above accurately reflects all work, treatment, procedures, and medical decision making performed by me. Departure Information Dispostion Transfer Acute Care Facility Referrals No Doctor, Assigned (PCP) Patient Instructions My [facility] Problem Qualifiers
[2017-07-15] MEDS ORDERED: PRLSR20 PO (14:31)
[2017-07-15 14:54] LABS: BASO % 0.3 %; BASO ABS # 0.02 K/uL (0-0.2); EOS % 2.2 %; EOS ABS # 0.13 K/uL (0-0.5); HEMATOCRIT 39.9 % (37-47); HEMOGLOBIN 13.8 g/dL (12.0-16.0); IG# 0.01 K/uL (0.00-0.02); LYMPH ABS # 1.47 K/uL (1.2-3.4); MEAN CELL VOLUME 91.5 fL (80-100); MEAN CORPUSCULAR HEMOGLOBIN 31.7 pg (25-34); MEAN CORPUSCULAR HGB CONC 34.6 g/dl (32-36); MEAN PLATELET VOLUME 9.1 fL (7.4-10.4); MONO ABS # 0.35 K/uL (0.11-0.59); NEUT % 66.3 %; NEUT ABS # 3.89 K/uL (1.4-6.5); PLATELET COUNT 173 K/uL (130-400); RED CELL DISTRIBUTION WIDTH CV 13.3 % (11.5-14.5); RED CELL DISTRIBUTION WIDTH SD 44.6 fL (36.4-46.3); WHITE BLOOD COUNT 5.87 K/uL (4.8-10.8)
[2017-07-15 15:16] LABS: ALT/SGPT 22 U/L (12-78); BLOOD UREA NITROGEN 13 mg/dl (7-18); CALCIUM 9.4 mg/dl (8.5-10.1); CARBON DIOXIDE 25 mmol/L (21-32); CREATININE 1.09 mg/dl (0.60-1.20); GLUCOSE 91 mg/dl (70-99); LIPASE 199 U/L (73-393); POTASSIUM 3.7 mmol/L (3.5-5.1); SODIUM 140 mmol/L (136-145)
[2017-07-15 15:18] LABS: ALKALINE PHOSPHATASE 37 U/L (45-117); AST/SGOT 14 U/L (15-37); TOTAL PROTEIN 7.3 gm/dl (6.4-8.2)
--- NOTE | 2017-07-15 15:34 | DIAGNOSTIC IMAGING REPORT ---
CHEST ONE VIEW PORTABLE CLINICAL HISTORY: , Pain. COMPARISON STUDY: Chest radiograph August 13, 2015. FINDINGS: Lung volumes are normal. No pneumothorax or pleural effusion is noted. There is no consolidation or evidence for pulmonary edema. Borderline cardiomegaly is noted. Mediastinal contours are unremarkable. IMPRESSION: No acute cardiopulmonary findings. Electronically signed by: Teja Nieves M.D. 07/15/2017 3:32 PM Dictated Date/Time: 07/15/2017 3:32 PM
--- NOTE | 2017-07-15 15:36 | DIAGNOSTIC IMAGING REPORT ---
SOFT TISSUE NECK HISTORY: 52 years-old Female throat burning, ?drank industrial clorox acute throat burning status post toxic ingestion COMPARISON: Chest radiographs 08/13/2015 TECHNIQUE: 2 views of the soft tissues of the neck FINDINGS: No prevertebral soft tissue swelling or opaque foreign body. Epiglottis and aryepiglottic folds are within normal limits. The imaged cervical spine appears intact and unremarkable. The imaged lung apices appear clear. IMPRESSION: Unremarkable soft tissue neck radiographs. The above report was generated using voice recognition software. It may contain grammatical, syntax or spelling errors. Electronically signed by: Juventino Marroquin M.D. 07/15/2017 3:34 PM Dictated Date/Time: 07/15/2017 3:33 PM
[2017-07-15] MEDS ORDERED: SODIUM CHLORIDE 0.9% 1000ML 1,000 ML IV STA (16:55)
[2017-07-15] MEDS ORDERED: PANTOprazole INJ 40 MG in SYRINGE 0 ML IV ONE (17:00)
[2017-07-15 17:30] VITALS: BP 143/83
[2017-07-15 18:59] VITALS: PULSE 68; O2SAT 96
== END 2017-07-15 19:01 | disposition short-term general hospital (02) ==
LOC: C.EDB 13:59
DX: T54.91XA Toxic effect of unspecified corrosive substance, accidental (unintentional), initial encounter (principal); R13.10 Dysphagia, unspecified; Z85.3 Personal history of malignant neoplasm of breast; E03.9 Hypothyroidism, unspecified; D64.9 Anemia, unspecified; F17.210 Nicotine dependence, cigarettes, uncomplicated; Z79.899 Other long term (current) drug therapy; Z88.2 Allergy status to sulfonamides

== ENCOUNTER → 2017-12-19 | Outpatient (CLI) | payer OTHER ==
[~2017-12-19] MED LIST changes: -IBUP-1450 PO; +PRLSR20 PO
--- NOTE | 2017-12-20 06:59 | MAMMOGRAPHY REPORT ---
BILATERAL DIGITAL DIAGNOSTIC MAMMOGRAM TOMOSYNTHESIS WITH CAD: 12/19/2017 CLINICAL HISTORY: 52-year-old woman with a personal history of right breast cancer diagnosed in 2015 status post breast conservation therapy. She presents at time of annual bilateral mammograms . TECHNIQUE: Bilateral CC and MLO 2D and tomosynthesis images, spot magnification right CC and ML views were obtained. Current study was also evaluated with a Computer Aided Detection (CAD) system. COMPARISON: Comparison is made to exams dated: 05/27/2017 mammogram, 12/13/2016 mammogram, 03/24/2016 mammogram, 12/17/2015 mammogram, 12/16/2015 mammogram, and 12/17/2015 ultrasound biopsy - [facility]. BREAST COMPOSITION: There are scattered areas of fibroglandular density in both breasts. FINDINGS: A linear scar marker overlies the 6:00 right breast, denoting the skin surgical scar from p rior lumpectomy. There is focal asymmetry and expected architectural distortion in the 6:00 middle o ne third of the right breast at the site of prior lumpectomy. Mild scar retraction comparing to the 12/13/2016 mammograms. The glandular pattern of each breast is otherwise similar to prior mammograms. No new suspicious masses, calcifications, areas of architectural distortion or asymmetries are seen bilaterally. IMPRESSION: ACR BI-RADS CATEGORY 2: BENIGN Stable bilateral mammograms, including postsurgical/posttreatment changes in the right breast, withou t mammographic evidence of malignancy. Recommend annual bilateral mammography in one year and would recommend remaining a diagnostic patient given a personal history of right breast cancer, in case any additional mammographic views and/or ultrasound may be needed. These results and recommendations were discussed with the patient at the time of the exam. Some breast cancers are not detected with mammography. A negative mammographic report should not eula y biopsy if a clinically suggestive mass is present. Char Stanley M.D. ay/:12/19/2017 08:29:55 Manager Resource: RT Marc(José Luis)(M), [facility] letter sent: Normal 1/2 BI-RADS Code: ACR BI-RADS Category 2: Benign
== END | disposition home or self-care (01) ==
LOC: C.MAMM 07:57
PROVIDERS: ATTEND Surgery
DX: R92.8 Other abnormal and inconclusive findings on diagnostic imaging of breast (principal); Z85.3 Personal history of malignant neoplasm of breast